=== PATIENT | male | born 1950 | race Caucasian/White ===

== ENCOUNTER 2017-06-11 17:26 | Emergency (ER) | payer BC ==
--- NOTE | 2017-06-11 18:11 | PDOC ---
Rapid Medical Evaluation Time Seen by Provider: 06/11/17 18:05 Medical Evaluation: 06/11/17 18:06 I have performed a brief in-person evaluation of this patient. The patient presents with a chief complaint of: Congestion, rhinorrhea, SILVER and cough x 2 months, here w/ worsening of symptoms and has sob last night. H/o HLD , HTN and diet controlled diabetes. Flew to [facility] from [place] 03/09/17 Pertinent physical exam findings: Tachy to 118 w/ 94% sats on RA w/ clear chest/ lungs I have ordered the following:labs/CXR/ekg The patient will proceed to the ED for further evaluation. 06/11/17 18:11
[2017-06-11 18:12] VITALS: BMI 29.2
[2017-06-11 19:24] LABS: BASO % 0.7 % (0-2.0); EOS % 2.8 % (0-4.5); HEMATOCRIT 47.5 % (35.4-49); HEMOGLOBIN 15.9 GM/dL (11.7-16.9); LYMPH % 23.5 % (8-40); MCH 28.7 pg (25.7-33.7); MCHC 33.5 g/dl (32.0-35.9); MEAN CELL VOLUME 85.8 fl (80-96); MEAN PLT VOLUME 7.8 fl (7.5-11.1); MONO % 9.3 % (3.8-10.2); NEUT % 63.7 % (42.8-82.8); PLATELET COUNT 262 K/MM3 (134-434); RBC 5.54 M/mm3 (4.00-5.60); RDW 13.7 % (11.9-15.9); WHITE BLOOD COUNT 9.1 K/mm3 (4.0-10.0)
[2017-06-11 19:26] LABS: URINE APPEARANCE CLEAR; URINE BILIRUBIN NEGATIVE (NEGATIVE); URINE BLOOD NEGATIVE (NEGATIVE); URINE COLOR YELLOW; URINE GLUCOSE (UA) NEGATIVE (NEGATIVE); URINE KETONE NEGATIVE (NEGATIVE); URINE LEUK ESTERASE NEGATIVE (NEGATIVE); URINE NITRITE NEGATIVE (NEGATIVE); URINE PROTEIN NEGATIVE (NEGATIVE); URINE UROBILINOGEN NEGATIVE mg/dL (0.2-1.0)
[2017-06-11 19:46] LABS: ALBUMIN 4.2 g/dl (3.4-5.0); ANION GAP 6 (8-16); BILIRUBIN,TOTAL 0.3 mg/dL (0.2-1.0); BLOOD UREA NITROGEN 16 mg/dL (7-18); CALCIUM 9.1 mg/dL (8.5-10.1); CHLORIDE 102 mmol/L (98-107); CO2 28 mmol/L (21-32); CREATININE 1.1 mg/dL (0.7-1.3); GLUCOSE,RANDOM 138 mg/dL (74-106); POTASSIUM 4.1 mmol/L (3.5-5.1); SGOT/AST 19 U/L (15-37); SGPT/ALT 33 U/L (12-78); SODIUM 136 mmol/L (136-145)
[2017-06-11 19:48] LABS: ALK PHOS 81 U/L (45-117)
[2017-06-11 20:07] VITALS: TEMP 98.8
--- NOTE | 2017-06-11 20:07 | PDOC ---
History of Present Illness - General Chief Complaint: Cold Symptoms Stated Complaint: COLD SYMPTOMS Time Seen by Provider: 06/11/17 18:05 History Source: Patient, Family Exam Limitations: No Limitations - History of Present Illness Initial Comments: This is a 66 YOM with h/o NIDDM (on Metformin), HTN, and HLD who p/w cough, very sore throat, and SOB worsening over the past several days. He notes milder SOB over the past two months as well. He has been taking Robitussin, Mucinex, and Advil at home for his symptoms with incomplete relief. He denies any fever, chills, nausea, vomiting, diarrhea, headache, vision changes, numbness, tingling , weakness, dysuria, chest pain, or other symptoms. He denies recent sick contacts. He measures his blood sugar at home regularly and rarely finds it to be above around 250. Past History - Past Medical History Allergies/Adverse Reactions: Allergies Allergy/AdvReac Type Severity Reaction Status Date / Time No Known Allergies Allergy Unverified 06/11/17 18:51 Home Medications: Ambulatory Orders Fenofibrate 0 mg PO DAILY 06/11/17 Losartan Potassium 0 mg PO DAILY 06/11/17 Metformin HCl 500 mg PO DAILY 06/11/17 Tobramycin 0.3% Ophth Soln [Tobrex Ophthalmic Solution -] 1 - 2 drop OU Q4HWA 7 Days #1 drops 06/11/17 COPD: No HTN: Yes Hypercholesterolemia: Yes - Suicide/Smoking/Psychosocial Hx Smoking History: Never smoked Have you smoked in the past 12 months: No Information on smoking cessation initiated: No Hx Alcohol Use: No Drug/Substance Use Hx: No Substance Use Type: None Review of Systems - Review of Systems Able to Perform ROS?: Yes Constitutional: No: Chills, Fever, Unexplained wgt Loss HEENTM: Yes: Nose Congestion, Throat Pain Respiratory: Yes: Cough, Shortness of Breath Cardiac (ROS): No: Chest Pain, Palpitations ABD/GI: No: Constipated, Diarrhea, Nausea, Vomiting : No: Burning, Dysuria Musculoskeletal: No: Back Pain, Neck Pain Integumentary: No: Bruising, Rash Neurological: No: Headache, Numbness, Tingling, Weakness, Dizziness Endocrine: No: Unexplained Weight Gain, Unexplained Weight Loss *Physical Exam - Vital Signs Last Vital Signs Temp Pulse Resp BP Pulse Ox 99.5 F 118 H 18 159/97 94 L 06/11/17 18:08 06/11/17 18:08 06/11/17 18:08 06/11/17 18:08 06/11/17 18:08 - Physical Exam General Appearance: Yes: Nourished, Appropriately Dressed, Other (appropriate and pleasant adult male in no distress with face mask on). No: Apparent Distress HEENT: positive: EOMI, HIRO, Normal Voice, Nasal Congestion, Rhinorrhea, Hearing Grossly Normal, Other (slight bilateral scleral injection without crusting, no trismus, no drooling). negative: Scleral Icterus (R), Scleral Icterus (L), Pharyngeal Erythema, Tonsillar Exudate, Tonsillar Erythema Neck: positive: Trachea midline, Supple. negative: Tender, Rigid Respiratory/Chest: positive: Lungs Clear, Normal Breath Sounds. negative: Respiratory Distress, Crackles, Rhonchi, Stridor, Wheezing Cardiovascular: positive: Regular Rhythm, S1, S2, Tachycardia. negative: Edema , JVD, Murmur Gastrointestinal/Abdominal: positive: Normal Bowel Sounds, Flat, Soft. negative : Tender, Organomegaly, Pulsatile Mass, Guarding Musculoskeletal: positive: Normal Inspection. negative: Decreased Range of Motion, Vertebral Tenderness Extremity: positive: Normal Capillary Refill, Normal Inspection, Normal Range of Motion. negative: Tender, Cyanosis Integumentary: positive: Normal Color, Dry, Warm. negative: Erythema, Rash, Bruising Neurologic: positive: dye room helper II-XII NML intact (grossly), Fully Oriented, Alert, Normal Mood/Affect, Normal Response, Motor Strength 5/5 ED Treatment Course - LABORATORY CBC & Chemistry Diagram: 06/11/17 19:00 06/11/17 19:00 - ADDITIONAL ORDERS Additional order review: Laboratory Results 06/11/17 19:10 Urine Color Yellow Urine Appearance Clear Urine pH 5.0 Ur Specific [place] 1.018 Urine Protein Negative Urine Glucose (UA) Negative Urine Ketones Negative Urine Blood Negative Urine Nitrite Negative Urine Bilirubin Negative Urine Urobilinogen Negative Ur Leukocyte Esterase Negative 06/11/17 19:00 RBC 5.54 MCV 85.8 MCHC 33.5 RDW 13.7 MPV 7.8 Neutrophils % 63.7 Lymphocytes % 23.5 Monocytes % 9.3 Eosinophils % 2.8 Basophils % 0.7 Medical Decision Making - Medical Decision Making 06/11/17 20:11 66M h/o NIDDM, HTN, HLD p/w cough, sore throat, worsening but mild SOB. On exam he is tachycardic, PO2 94% on RA, no distress, bilateral mild scleral injection, no crusting, lungs/heart clear. DDX IBNLT Flu, Strep pharyngitis, viral URI, bronchitis, PNA, etc. 06/11/17 21:59 Patient's lab work, Rapid Strep, and Flu swab are all negative. He remains tachycardic to 120 on re-assessment. Motrin 800 mg ordered as well as rectal temp. Rectal temp is 99.9 just before Motrin given. 06/11/17 23:28 Tachycardia has improved (103), patient wants to go home. He and the daughter state that hospitals make him nervous and he will have fast heart rate while here. Return precautions are discussed and he will f/u with PCP. *DC/Admit/Observation/Transfer Diagnosis at time of Disposition: Viral URI, Tachycardia, Stress reaction Conjunctivitis Qualifiers: Conjunctivitis type: acute Acute conjunctivitis type: unspecified Laterality: bilateral Qualified Code(s): H10.33 - Unspecified acute conjunctivitis, bilateral - Discharge Dispostion Disposition: HOME Condition at time of disposition: Stable Admit: No - Prescriptions Prescriptions: Tobramycin 0.3% Ophth Soln [Tobrex Ophthalmic Solution -] 1 - 2 drop OU Q4HWA 7 Days #1 drops - Referrals - Patient Instructions Printed Discharge Instructions: DI for Viral Upper Respiratory Infection -- Adult Additional Instructions: You were seen in the ER for a sore throat and cough. We did lab work, a flu and Strep throat test, and a chest x-ray, all of which were not concerning. We are prescribing you antibiotic eyedrops for conjuntivitis. Please take over-the- counter medicines for your URI symptoms. Follow up with your regular doctor early next week, or return to the ER for any new or worsening symptoms. - Post Discharge Activity
--- NOTE | 2017-06-11 20:15 | PDOC ---
Attending Attestation - Resident Resident Name: Ngoc Merrill - ED Attending Attestation I have performed the following: I have examined & evaluated the patient, The case was reviewed & discussed with the resident, I agree w/resident's findings & plan
[2017-06-11] MEDS ORDERED: SODIUM CHLORIDE 0.9% 500 ML INFUS.BAG IV ONE (21:52)
[2017-06-11] MEDS ORDERED: IBUPROFEN 400 MG TABLET (FP) PO ONE ×2 (21:59→22:03)
[2017-06-11 23:48] VITALS: BP 133/78; PULSE 102
--- NOTE | 2017-06-14 21:49 | EKG ---
Test Reason : Blood Pressure : / mmHG Vent. Rate : 113 BPM Atrial Rate : 113 BPM P-R Int : 114 ms QRS Dur : 100 ms QT Int : 342 ms P-R-T Axes : 024 -25 001 degrees QTc Int : 469 ms SINUS TACHYCARDIA MINIMAL VOLTAGE CRITERIA FOR LVH, MAY BE NORMAL VARIANT BORDERLINE ECG NO PREVIOUS ECGS AVAILABLE Confirmed by ABIGAIL RUSHING, NIMESH ([id number]) on 06/14/2017 9:49:40 PM Referred By: Confirmed By:NIMESH HAYES MD
== END 2017-06-11 23:54 | disposition home or self-care (01) ==
LOC: JER 17:26
DX: J06.9 Acute upper respiratory infection, unspecified (principal); F43.8 Other reactions to severe stress; R00.0 Tachycardia, unspecified; H10.33 Unspecified acute conjunctivitis, bilateral; I10 Essential (primary) hypertension; E11.9 Type 2 diabetes mellitus without complications; Z79.84 Long term (current) use of oral hypoglycemic drugs; E78.00 Pure hypercholesterolemia, unspecified
CPT/HCPCS: 36415; 71046-TC; 80053; 81003; 82550; 84484; 85025; 87070; 87086; 87430; 87804; 93005; 93010; 99283-25